=== PATIENT | male | born 1955 | race Hispanic/Latino ===

== ENCOUNTER 2018-09-25 07:26 | Day surgery (SDC) | payer BC ==
[2018-09-24 11:15] VITALS: BMI 27.0
[2018-09-25 08:00] VITALS: RESP 18
[2018-09-25] MEDS ORDERED: Lactated Ringer's 1,000 ML IV ONE ×2 (08:01→10:30)
[2018-09-25] MEDS ORDERED: Lidocaine 1% w Epi 1:100,000 Inj ONE (08:20)
[2018-09-25] MEDS ORDERED: Lidocaine 2% Inj (20ml) ONE (08:20)
[2018-09-25] MEDS ORDERED: Succinylcholine Chloride 20 mg/ml Syr (5 ml) IV ONE (08:36)
[2018-09-25] MEDS ORDERED: Propofol 10 mg/ml Inj (20 ML) ONE (08:36)
[2018-09-25] MEDS ORDERED: ceFAZolin 2 GM in Sodium Chloride 0.9% 100 ML IVPB STA (08:56)
[2018-09-25] MEDS ORDERED: Bupivacaine 0.5% 50 ML IJ ONE (08:56)
[2018-09-25] MEDS ORDERED: Midazolam 2 MG/2 ML VIAL ONE (08:57)
[2018-09-25] MEDS ORDERED: Bupivacaine 0.5% Inj(30mL) IJ ONE (09:05)
[2018-09-25] MEDS ORDERED: Oxycodone/Acetaminophen 5/325 mg Tab PO ONE (09:54)
[2018-09-25] MEDS ORDERED: HYDROmorphone 0.5 mg/0.5 ml ISec IVP PRN (10:01)
--- NOTE | 2018-09-25 10:01 | PCM.SURG1 ---
Surgeon's Initial Post Op Note - Surgeon's Notes Surgeon: Dr. Dey Supervisor Sheet Manufacturing: [id number] Type of Anesthesia: General LMA Anesthesia Administered By: Dr. Guevara Pre-Operative Diagnosis: Left Neck and Chest mass Operative Findings: Lipoma measuring approx 7x5cm Post-Operative Diagnosis: Lipoma of left neck and back Operation Performed: Excision of Left Neck and Back mass Specimen/Specimens Removed: Lipoma of left neck and back Estimated Blood Loss: EBL {In ML}: 5 Blood Products Given: N/A Drains Used: No Drains Post-Op Condition: Good Date of Surgery/Procedure: 09/25/18 Time of Surgery/Procedure: 10:02
[2018-09-25 10:18] VITALS: O2SAT 99
[2018-09-25 12:22] VITALS: TEMP 97
[2018-09-25 12:25] VITALS: BP 130/80; PULSE 74
--- NOTE | 2018-09-25 21:29 | OP ---
PROCEDURE DATE: 09/25/2018 POSTOPERATIVE DIAGNOSIS: Grossly appearing lipoma. PROCEDURE: Excision of a very deep lipoma of the posterior aspect of the neck. SURGEON: Magdy Dey MD ROLLER STAINER: Collin Goins DO TYPE OF ANESTHESIA: General LMA. ANESTHESIA ADMINISTERED BY: Marsha Guevara MD OPERATIVE FINDINGS: Approximately a 7 cm lipoma. DESCRIPTION OF PROCEDURE: After obtaining informed consent, the patient was taken to the operating room. After time-out obtained and induction of general LMA anesthesia, the patient was placed in the right lateral decubitus position. The posterior neck was prepped and draped in the usual manner and after adequate infiltration with 0.5% Marcaine, a transverse incision was made over the palpable mass. This was carried down through subcu tissue to deep subcu tissue entering the lipoma capsule and the lipoma capsule was then dissected, which was attached to the deep muscles. These were carefully dissected and hemostasis was obtained using hemocautery. Once the lipoma was totally excised, the area was copiously irrigated and hemostasis was obtained using hemocautery, and once this was done, the deep subcu was approximated with fine Vicryl, the skin with Monocryl. A dressing was applied. The patient tolerated the procedure very well and was transferred to recovery room in good general status. Magdy Dey MD
== END 2018-09-25 11:30 | disposition home or self-care (01) ==
LOC: H.OPSURG 07:26
PROVIDERS: ATTEND Surgery
DX: D17.1 Benign lipomatous neoplasm of skin and subcutaneous tissue of trunk (principal); E78.5 Hyperlipidemia, unspecified; I10 Essential (primary) hypertension
CPT/HCPCS: 11426; 13132; 88304; J0131; J0690; J2001; J2250; J2704; J3010; J7030; J7120